=== PATIENT | male | born 1950 | race Caucasian/White ===

== ENCOUNTER 2019-10-22 04:16 | Emergency (ER) | payer MEDICARE, OTHER ==
[~2019-10-22] VITALS: Ht 187 cm; Wt 90.0 kg
[~2019-10-22 04:16] MED LIST: MULT-974 PO; OMG1KC PO
[2019-10-22] MEDS ORDERED: KETOROLAC 30 MG/ML VIAL IVP STA (04:39)
[2019-10-22] MEDS ORDERED: ONDANSETRON 4 MG/2 ML (SDV) Z0FRAN IVP ONE (04:45)
[2019-10-22] MEDS ORDERED: morphine INJ 10 MG/ML 1ML (SYR OR VIAL) IVP ONE ×2 (04:45→05:15)
--- NOTE | 2019-10-22 04:45 | ED Hip Pain/Injury ---
General Chief Complaint: Hip/Pelvic Problems Stated Complaint: RT HIP PAIN Source: patient Exam Limitations: no limitations History of Present Illness Date Seen by Provider: Oct 22, 2019 Time Seen by Provider: 04:30 Initial Comments Here with report of right hip pain has been going on over the last 24 hours and worsening. States it starts at the right hip and shoots down to his right knee. Denies numbness between his legs, bowel or bladder incontinence, fever or any significant injury. 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 He has tried acetaminophen 1 g every 6 hours 3 doses without any significant pain relief. States the pain is so bad that it's causing nausea and dry heaves. He is unable to get comfortable. Timing/Duration: yesterday, getting worse Severity: moderate, severe Method of Injury: unknown Modifying Factors: Improves With Other (cannot find position of comfort) Associated Symptoms: No fatigue, No fever; pain radiating to knees Allergies and Home Medications Allergies Coded Allergies: No Known Drug Allergies (Unverified , 11/13/10) Home Medications Multivitamin 1 Each Tablet, 1 EACH PO DAILY, (Reported) Industry 3 Polyunsat Fatty Acids 1,000 Mg Cap, 1,000 MG PO DAILY, (Reported) Patient Home Medication List Home Medication List Reviewed: Yes Review of Systems Constitutional: see HPI; No chills, No fever Respiratory: no symptoms reported Cardiovascular: no symptoms reported Gastrointestinal: see HPI; No abdominal pain Genitourinary: no symptoms reported Musculoskeletal: see HPI, back pain, joint pain, muscle pain Skin: no symptoms reported Past Ppvqtcs-Rqoayz-Ibkjjr Hx Past Med/Social Hx: Reviewed Nursing Past Med/Soc Hx Patient Social History Alcohol Use: Denies Use Recreational Drug Use: No Smoking Status: Never a Smoker Recent Foreign Travel: No Contact w/Someone Who Travel: No Recent Hopitalizations: No Physical Abuse: No Sexual Abuse: No Mistreated: No Fear: No Immunizations Up To Date Tetanus Booster (TDap): Unknown PED Vaccines UTD: Yes Date of Influenza Vaccine: Aug 29, 2015 Seasonal Allergies Seasonal Allergies: No Past Medical History Surgeries: Yes Tonsillectomy Respiratory: No Cardiac: No Neurological: No Genitourinary: No Gastrointestinal: No Musculoskeletal: No Endocrine: No HEENT: No Cancer: No Psychosocial: No Integumentary: No Family Medical History Reviewed Nursing Family Hx Physical Exam Vital Signs Vital Signs - First Documented 10/22/19 04:22 Temp 36.4 Pulse 74 Resp 22 B/P (MAP) 178/89 (118) Pulse Ox 96 O2 Delivery Room Air Capillary Refill : Height, Weight, BMI Height: 6'2.00" Weight: 196lbs. oz. 88.928167jq; BMI Method: General Appearance: No Apparent Distress, WD/WN HEENT: Pharynx Normal Neck: Non Tender, Supple Cardiovascular: Regular Rate, Rhythm, No Murmur Respiratory: Lungs Clear, Normal Breath Sounds Gastrointestinal: Non Tender, Soft Back: No CVA Tenderness, No Vertebral Tenderness, Other (Tender near the area of the right SI joint. No obvious deformity. No significant low back spasms noted.) Neurologic/Psychiatric: Alert, Oriented x3 Progress/Results/Core Measures Results/Orders My Orders Orders - NASIMA MCGOWAN MD Ketorolac Injection (Toradol Injection) (10/22/19 04:39) Morphine Injection (Morphine Injection (10/22/19 04:45) Ondansetron Injection (Zofran Injectio (10/22/19 04:45) Ed Iv/Invasive Line Start (10/22/19 04:39) Morphine Injection (Morphine Injection (10/22/19 05:15) Pelvis With Right Hip 2-3views (10/22/19 05:10) Prednisone Tablet (Deltasone Tablet) (10/22/19 05:30) Medications Given in ED Current Medications Medications Dose Ordered Sig/Letty Route Start Time Stop Time Status Last Admin Dose Admin Morphine Sulfate 4 mg ONCE ONCE IVP 10/22/19 04:45 10/22/19 04:46 DC 10/22/19 04:46 4 MG Morphine Sulfate 4 mg ONCE ONCE IVP 10/22/19 05:15 10/22/19 05:16 DC 10/22/19 05:19 4 MG Ondansetron HCl 4 mg ONCE ONCE IVP 10/22/19 04:45 10/22/19 04:46 DC 10/22/19 04:46 4 MG Vital Signs/I&O 10/22/19 04:22 Temp 36.4 Pulse 74 Resp 22 B/P (MAP) 178/89 (118) Pulse Ox 96 O2 Delivery Room Air Progress Progress Note : Progress Note Seen and evaluated. IV, Zofran 4 mg IV, Toradol 30 mg IV and morphine 4 mg IV ordered. Monitor patient. 0530: Repeat morphine 4 mg IV and prednisone 60 mg by mouth given. X-ray right hip and pelvis ordered and completed and reviewed by me. Monitor patient. 0600: Overall doing much better. Discharged home with return precautions. Patient verbalize understanding instructions and agreement with plan. Diagnostic Imaging Diagonstic Imaging: Xray Plain Films/CT/US/NM/MRI: pelvis, hip Comments No acute fractures noted. Question degeneration of the right hip. Reviewed: Reviewed by Me Departure Impression Primary Impression: Sciatica, right side Disposition: HOME, SELF-CARE Condition: Improved Departure-Patient Inst. Decision time for Depature: 06:05 Referrals: ROBBIE WOOTEN MD (PCP/Family) Primary Care Physician Patient Instructions: Sciatica (DC) Add. Discharge Instructions: All discharge instructions reviewed with patient and/or family. Voiced understanding. You may take ibuprofen 600 mg every 8 hours as needed for pain. You may also take Tylenol/acetaminophen 1000 mg every 8 hours as needed for pain. Do not exceed 4000 mg of Tylenol/acetaminophen in 24 hours. Do not take Tylenol/acetaminophen if you're taking the prescribed pain medicine as they both have acetaminophen in them. You should take MiraLAX or the generic one half to one capful twice daily as needed while taking the prescribed pain medicine as it will likely constipate you. You may increase or decrease the dose as needed to keep stools in normal range. Drink plenty of fluids. Take other medications as directed. Follow-up with your Dr. in a few days for recheck. Return for worse pain, weakness, numbness between your legs, difficulty with walking or going to the bathroom or other concerns as needed. Scripts Prednisone (Prednisone) 20 Mg Tab 40 MG PO DAILY, #10 TAB 0 Refills Prov: NASIMA MCGOWAN MD 10/22/19 Hydrocodone Bit/Acetaminophen (Hydrocodone/Acetaminophen 5/325mg Tablet) 1 Tab Tab 1-2 EACH PO Q6H PRN for PAIN-MODERATE MDD 10 for 3 Days, #10 TAB 0 Refills Prov: NASIMA MCGOWAN MD 10/22/19 NASIMA MCGOWAN MD Oct 22, 2019 04:45 POS
[2019-10-22] MEDS ORDERED: predniSONE 20 MG TAB PO ONE (05:30)
[2019-10-22] MEDS ORDERED: ACHD5005 PO (06:08)
[2019-10-22] MEDS ORDERED: PRD20T PO (06:08)
--- NOTE | 2019-10-22 06:29 | Diagnostic Imaging Report ---
INDICATION: Pelvic and right hip pain AP view of the pelvis is obtained with coned AP and frog-leg views of right hip. There is mild bilateral hip joint space narrowing and mild marginal spurring. No fracture is identified. There is no abnormal lytic or sclerotic focus. IMPRESSION: Mild bilateral hip osteoarthritis without acute abnormality detected. Dictated by: Dictated on workstation # [id number]
[2019-10-22 06:44] VITALS: BP 132/79
== END 2019-10-22 06:45 | disposition home or self-care (01) ==
LOC: EDUNIT# 04:16 → ER 04:18
DX: M54.31 Sciatica, right side (principal); Z90.89 Acquired absence of other organs